=== PATIENT | male | born 1955 | race Caucasian/White ===

== ENCOUNTER → 2019-10-10 | Outpatient (CLI) | payer OTHER ==
--- NOTE | 2019-10-10 13:33 | NUR ---
VASCULAR ACCESS NOTE ORDER VERIFIED FOR PICC PLACEMENT. PATIENT CONSENTED FOR PROCEDURE. R BRACHIAL VEIN WAS WIDELY PATENT ON U.S ASSESSMENT. PATIENT PREPPED AND DRAPED UNDER STERILE CONDITIONS. 1% LIDOCAINE 3ML GIVEN SUB Q INJECTION. VEIN CANNULATED WITH ONE ATTEMPT. GUIDEWIRE ADVANCED EASILY. VEIN DILATED. GUIDEWIRE REMOVED INTACT. 4FR SL PICC TRIMMED TO 41CM. LINE ADVANCED EASILY. LINE INSERTED TO 40CM INTERNAL WITH 1CM EXTERNAL. LINE FLUSHES AND DRAWS EASILY. CXR SHOWS LINE IN THE SVC. LINE RELEASED FOR IMMEDIATE USE. PATIENT TOLERATED PROCEDURE WELL.
--- NOTE | 2019-10-10 14:01 | NUR ---
IN FOR PICC LINE PLACEMENT FOR SOUBRETTE IV ANTIBIOTICS FOR OSTEOMYELITIS. IV TEAM PLACED SINGLE LUMEN PICC LINE IN RIGHT UPPER ARM. PLACEMENT VERIFIED BY CHEST XRAY. TO HAVE SURGERY TOMORROW. DISMISSED IN GOOD CONDITION.
== END ==
LOC: OPONC 11:42
DX: Z45.2 Encounter for adjustment and management of vascular access device (principal); M86.8X7 Other osteomyelitis, ankle and foot
CPT/HCPCS: 27000